=== PATIENT | male | born 1980 | race African-American/Black ===

== ENCOUNTER 2017-08-30 19:30 | Emergency (ER) | payer BC ==
--- NOTE | 2017-08-30 19:56 | EDM.PDOC ---
ED HPI GENERAL MEDICAL PROBLEM - General Chief Complaint: Skin Complaint Stated Complaint: ITCHY/RASH BODY Time Seen by Provider: 08/30/17 19:41 - History of Present Illness INITIAL COMMENTS - FREE TEXT/NARRATIVE: HISTORY AND PHYSICAL: History of present illness: The patient is a 37 rolled male who presents with new onset urticaria/rash that started yesterday and continued until today so he went to an outside clinic, [facility], this morning and was treated with a steroid injection. He says he had taken Benadryl and it seemed to help and he was told by the provider there that he could either continue the Benadryl or not continue it. He says that after he left their light throughout the day today he feels like the rash is gotten worse. He has not taken any Benadryl today. He states that he has not had any new foods or new contacts that he is aware of. He thought maybe his face was getting a little bit swollen and he was concerned. He's been eating and drinking normally and has no shortness of breath Review of systems: As per history of present illness and below otherwise all systems reviewed and negative. Past medical history: As per history of present illness and as reviewed below otherwise noncontributory. Surgical history: As per history of present illness and as reviewed below otherwise noncontributory. Social history: No reported history of drug or alcohol abuse. Family history: As per history of present illness and as reviewed below otherwise noncontributory. Physical exam: Gen.: Well-developed well-nourished man who is nontoxic and speaking clearly and easily in ED. Vital signs been reviewed by me HEENT: Atraumatic, normocephalic, negative for conjunctival pallor or scleral icterus, mucous membranes moist, throat clear, neck supple, nontender, trachea midline. There is minimal swelling of his lips but no gross facial edema is appreciated Lungs: Clear to auscultation, breath sounds equal bilaterally, chest nontender. Heart: S1S2, regular rate and rhythm no overt murmurs Abdomen: Soft, nondistended, nontender. NABS Pelvis: Deferred Genitourinary: Deferred. Rectal: Deferred. Extremities: Atraumatic, negative for cords or calf pain. Neurovascular unremarkable. Neuro: Awake, alert, oriented. Cranial nerves II through XII unremarkable. Cerebellum unremarkable. Motor and sensory unremarkable throughout. Exam nonfocal. Skin: There is diffuse urticaria palpated and visualized on the patient's skin throughout the trunk and extremities. There is also some visualized urticaria on his face. Diagnostics: [] Therapeutics: [] The patient drove himself here and would like to drive home so with that in mind I told him that I could not give him any Vistaril or Benadryl here but that he would need to take that when he gets home. I will also give him a burst of steroids for home and advised [id number] Pepcid. Told him to continue to explore his world for triggers and that he would need to give this some time to improve. Impression: Urticaria Definitive disposition and diagnosis as appropriate pending reevaluation and review of above - Related Data Allergies Allergy/AdvReac Type Severity Reaction Status Date / Time No Known Allergies Allergy Verified 08/30/17 19:36 Home Meds: Home Meds . [No Known Home Meds] 08/30/17 [History] Annxiety Medication 08/30/17 [History] ED ROS GENERAL - Review of Systems Review Of Systems: ROS reveals no pertinent complaints other than HPI. ED EXAM, SKIN/RASH Exam: See Below (See dictation) Course - Vital Signs Last Recorded V/S: Last Vital Signs Temp 36.2 C 08/30/17 19:30 Pulse 91 08/30/17 19:30 Resp 20 08/30/17 19:30 BP 146/84 H 08/30/17 19:30 Pulse Ox 97 08/30/17 19:30 Departure - Departure Time of Disposition: 19:55 Disposition: Home, Self-Care 01 Condition: Good Clinical Impression: Urticaria - Discharge Information Referrals: PCP,None [Primary Care Provider] - Additional Instructions: The following information is given to patients seen in the emergency department who are being discharged to home. This information is to outline your options for follow-up care. We provide all patients seen in our emergency department with a follow-up referral. The need for follow-up, as well as the timing and circumstances, are variable depending upon the specifics of your emergency department visit. If you don't have a primary care physician on staff, we will provide you with a referral. We always advise you to contact your personal physician following an emergency department visit to inform them of the circumstance of the visit and for follow-up with them and/or the need for any referrals to a consulting specialist. The emergency department will also refer you to a specialist when appropriate. This referral assures that you have the opportunity for followup care with a specialist. All of these measure are taken in an effort to provide you with optimal care, which includes your followup. Under all circumstances we always encourage you to contact your private physician who remains a resource for coordinating your care. When calling for followup care, please make the office aware that this follow-up is from your recent emergency room visit. If for any reason you are refused follow-up, please contact the [facility] emergency department at and ask to speak to the emergency department charge nurse. [facility] Primary care- Internal Medicine and Family [address] [address] Please fill and take prescriptions as directed. He will be given a prescription for Vistaril so you do not need to take Benadryl [id number]. Please use mild soap when you're showering and use all hypoallergenic products. Please call and follow-up with one of our clinic providers for further reevaluation and care of this rash. The rash will come and go over the next several days. Return to ER as needed and as discussed.
== END 2017-08-30 20:00 | disposition home or self-care (01) ==
LOC: MW.ED 19:30
DX: L50.9 Urticaria, unspecified (principal)
CPT/HCPCS: 99282; 99283